=== PATIENT | female | born 1975 | race Caucasian/White ===

== ENCOUNTER 2016-12-30 18:08 | Inpatient (IN) | payer BC, SELFPAY ==
[2016-12-30] MEDS ORDERED: Lactated Ringers 1,000 ML ONE (18:17)
[2016-12-30] MEDS ORDERED: Nalbuphine 20 MG/1 ML Amp IVPUSH PRN (18:25)
[2016-12-30] MEDS ORDERED: Ondansetron 4 MG/2 ML SDV IVPUSH PRN (18:25)
[2016-12-30] MEDS ORDERED: Sodium Chloride 0.9% 10 ML Syringe FLUSH PRN (18:25)
[2016-12-30] MEDS ORDERED: Oxytocin/Lactated Ringers 10 UNIT/1,000 ML BAG IV SCH (18:30)
[2016-12-30] MEDS ORDERED: Lactated Ringers 1,000 ML IV SCH (18:30)
[2016-12-30] MEDS ORDERED: fentaNYL 100 MCG/2 ML SDV ONE (18:46)
[2016-12-30] MEDS ORDERED: Lidocaine 1% 50 ML MDV ONE (18:47)
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
--- NOTE | 2016-12-30 19:10 | PCM.PREANE ---
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: no symptoms Respiratory: Reports: no symptoms Cardiovascular: Reports: no symptoms GI: Reports: no symptoms Other: Reports: none - PHYSICAL ASSESSMENT HR: 89 O2 Sat by Pulse Oximetry: 98 RR: 20 BP: 136/68 Height: 1.68 m Weight: 90.718 kg ASA Class: 2 Mental Status: alert & oriented x3 Airway Class: Mallampati = 1 Dentition: Reports: normal dentition Thyro-Mental Finger Breadths: 3 Mouth Opening Finger Breadths: 3 ROM/Head Extension: full Respiratory Status: lungs clear to auscultation bilaterally Cardiovascular Status: regular rate & rhythm, normal S1, S2, no murmur, blood pressure WNL - LAB Values: Laboratory Last Values WBC 13.33 K/mm3 (3.98-10.04) H 12/30/16 18:32 RBC 4.89 M/mm3 (3.98-5.22) 12/30/16 18:32 Hgb 12.7 gm/L (11.2-15.7) 12/30/16 18:32 Hct 39.5 % (34.1-44.9) 12/30/16 18:32 MCV 80.8 fl (79.4-94.8) 12/30/16 18:32 MCH 26.0 pg (25.6-32.2) 12/30/16 18:32 MCHC 32.2 g/dl (32.2-35.5) 12/30/16 18:32 RDW Std Deviation 43.4 fL (36.4-46.3) 12/30/16 18:32 Plt Count 337 K/mm3 (182-369) 12/30/16 18:32 MPV 9.4 fl (9.4-12.3) 12/30/16 18:32 Neut % (Auto) 68.1 % (34.0-71.1) 12/30/16 18:32 Lymph % (Auto) 23.6 % (19.3-51.7) 12/30/16 18:32 [place] % (Auto) 7.0 % (4.7-12.5) 12/30/16 18:32 Eos % (Auto) 0.6 (0.7-5.8) L 12/30/16 18:32 Baso % (Auto) 0.2 % (0.1-1.2) 12/30/16 18:32 Neut # 9.08 K/mm3 (1.56-6.13) H 12/30/16 18:32 Lymph # 3.15 K/mm3 (1.18-3.74) 12/30/16 18:32 [place] # 0.93 K/mm3 (0.24-0.36) H 12/30/16 18:32 Eos # 0.08 K/mm3 (0.04-0.36) 12/30/16 18:32 Baso # 0.02 K/mm3 (0.01-0.08) 12/30/16 18:32 - ALLERGIES Allergies/Adverse Reactions: Allergies Allergy/AdvReac Type Severity Reaction Status Date / Time Penicillins Allergy Anaphylactic Verified 12/30/16 18:42 Shock - ANESTHESIA PLAN Preop Beta Wily: No Anesthesia Type Planned: spinal - ACKNOWLEDGEMENTS Pt an appropriate candidate for the planned anesthesia: Yes Alternatives and risks of anesthesia discussed w pt/guardian: Yes Pt/Guardian understands and agree with anesthesia plan: Yes 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 [No Known Home Meds] 01/30/16 [History] - CURRENT (IN HOUSE) MEDS Current Meds: Current Medications Lactated Ringer's (Ringers, Lactated) 1,000 mls @ 100 mls/hr IV ASDIRECTED ABHISHEK Oxytocin/Lactated Ringer's (Pitocin In Lr 10 Units/1,000 Ml) 10 unit in 1,000 mls @ 500 mls/hr IV TITRATE ABHISHEK Nalbuphine HCl (Nubain) 10 mg IVPUSH Q2H PRN PRN Reason: Pain (moderate 4-6) Last Admin: 12/30/16 18:35 Dose: 5 mg Ondansetron HCl (Zofran) 4 mg IVPUSH Q4H PRN PRN Reason: Nausea/Vomiting Sodium Chloride (Saline Flush) 10 ml FLUSH ASDIRECTED PRN PRN Reason: Keep Vein Open Discontinued Medications Fentanyl (Sublimaze) Confirm Administered Dose 100 mcg .ROUTE .STK-MED ONE Stop: 12/30/16 18:47 Lactated Ringer's (Ringers, Lactated) Confirm Administered Dose 1,000 mls @ as directed .ROUTE .STK-MED ONE Stop: 12/30/16 18:18 Lidocaine HCl (Xylocaine 1%) Confirm Administered Dose 50 ml .ROUTE .STK-MED ONE Stop: 12/30/16 18:48
--- NOTE | 2016-12-30 20:50 | PCM.SN ---
- Free Text/Narrative Note: Renee was admitted in active labor on 12/30/16 with cervical dilation to 7-8 cm. She had somewhat of a precipitous labor, did have a quick spinal block and rapidly became completely dilated. The baby was noted to be in direct occiput posterior position. The patient pushed for approximately one hour. She delivered the baby in a occiput posterior position with the baby's head rotating at the last minute to a left occiput anterior position. She delivered over an intact perineum and had some abrasions. No bleeding or are anatomic distortion noted. She delivered a viable, sotelo, female infant with Apgars of 9 and 9 and a weight of 3484 grams (7 # 12 ounces) at 2019 hours and wasm 53 cm long. The placenta delivered in a Phoebe presentation at 2023 hours. It appeared intact and complete and delivered without problems. The umbilical cord had 3 vessels. Pitocin was administered after delivery of the baby. Estimated blood loss 200 cc. Condition good. Patient plans to nurse.
[2016-12-30] MEDS ORDERED: Docusate Sodium 100 MG Cap PO PRN (21:05)
[2016-12-30] MEDS ORDERED: Lanolin 100% Cream 7 GM Tube TOP PRN (21:05)
[2016-12-30] MEDS ORDERED: Witch Hazel Medicated Pads 100/Jar TOP PRN (21:05)
[2016-12-30] MEDS ORDERED: Acetaminophen 325 MG Tab PO PRN (21:05)
[2016-12-30] MEDS ORDERED: Benzocaine/Menthol 20%-0.5% Spray 56 GM Canister TOP PRN (21:05)
[2016-12-30] MEDS: Ibuprofen 600 MG Tab PO PRN (22:02)
[2016-12-31] MEDS: Ibuprofen 600 MG Tab PO PRN ×2 (04:23→13:41)
--- NOTE | 2016-12-31 08:04 | PCM48HPAN ---
Post Anesthesia Note - EVALUATION WITHIN 48HRS OF ANESTHETIC Vital Signs in Normal Range: Yes Patient Participated in Evaluation: Yes Respiratory Function Stable: Yes Airway Patent: Yes Cardiovascular Function Stable: Yes Hydration Status Stable: Yes Pain Control Satisfactory: Yes Nausea and Vomiting Control Satisfactory: Yes Mental Status Recovered: Yes
--- NOTE | 2016-12-31 09:48 | PCM.DCSUM1 ---
Discharge Summary - Hospital Course Free Text/Narrative:: Renee was admitted in active labor on 12/30/16 with cervical dilation to 7-8 cm. She had somewhat of a precipitous labor, did have a quick spinal block and rapidly became completely dilated. The baby was noted to be in direct occiput posterior position. The patient pushed for approximately one hour. She delivered the baby in a occiput posterior position with the baby's head rotating at the last minute to a left occiput anterior position. She delivered over an intact perineum and had some abrasions. No bleeding or are anatomic distortion noted. She delivered a viable, sotelo, female infant with Apgars of 9 and 9 and a weight of 3484 grams (7 # 12 ounces) at 2019 hours and wasm 53 cm long. The placenta delivered in a Phoebe presentation at 2023 hours. It appeared intact and complete and delivered without problems. The umbilical cord had 3 vessels. Pitocin was administered after delivery of the baby. Estimated blood loss 200 cc. Condition good. Patient plans to nurse. PP day one doing very well. Hb OK, nursing well. Desires discharge home. - Discharge Data Discharge Date: 12/31/16 Discharge Disposition: Home, Self-Care 01 Condition: Good - Patient Instructions Diet: Regular Diet as Tolerated (nursing) Activity: As Tolerated (No intercourse or tampons till bleeding stops.) Driving: May Drive Today Showering/Bathing: May Shower (or bathe) Notify Provider of: Fever, Increased Pain, Swelling and Redness, Nausea and/or Vomiting - Discharge Plan Home Medications: Home Meds Ibuprofen [IJD: Ibuprofen] 600 mg PO Q4H PRN #30 tablet 12/31/16 [Rx] Referrals: Felipe Del Cid MD [Primary Care Provider] - (RTC TFA-6 weeks.) - Discharge Summary/Plan Comment DC Time >30 min.: No Discharge Summary/Plan Comment: Instructions: 1. Nursing diet 2. Precautions regarding pain, temp, bleeding, DVT/PE given. 3. Meds per home med sheet. 4. RTC [address] Del Cid Dx: 39 week IUP-delivered cond: good - Patient Data Vitals - Most Recent: Last Vital Signs Temp 36.9 C 12/31/16 04:12 Pulse 92 12/31/16 04:12 Resp 18 12/31/16 04:00 BP 132/77 12/31/16 04:12 Pulse Ox 97 12/31/16 04:12 Weight - Most Recent: 105.687 kg I&O - Last 24 hours: Intake & Output 12/30/16 12/31/16 12/31/16 22:59 06:59 14:59 Intake Total 1700 Balance 1700 Lab Results - Last 24 hrs: Laboratory Results - last 24 hr 12/30/16 12/31/16 Range/Units 18:32 06:14 WBC 13.33 H 15.52 H (3.98-10.04) K/mm3 RBC 4.89 4.46 (3.98-5.22) M/mm3 Hgb 12.7 11.6 (11.2-15.7) gm/L Hct 39.5 36.9 (34.1-44.9) % MCV 80.8 82.7 (79.4-94.8) fl MCH 26.0 26.0 (25.6-32.2) pg MCHC 32.2 31.4 L (32.2-35.5) g/dl RDW Std Deviation 43.4 44.2 (36.4-46.3) fL Plt Count 337 307 (182-369) K/mm3 MPV 9.4 9.7 (9.4-12.3) fl Neut % (Auto) 68.1 (34.0-71.1) % Lymph % (Auto) 23.6 (19.3-51.7) % [place] % (Auto) 7.0 (4.7-12.5) % Eos % (Auto) 0.6 L (0.7-5.8) Baso % (Auto) 0.2 (0.1-1.2) % Neut # 9.08 H (1.56-6.13) K/mm3 Lymph # 3.15 (1.18-3.74) K/mm3 [place] # 0.93 H (0.24-0.36) K/mm3 Eos # 0.08 (0.04-0.36) K/mm3 Baso # 0.02 (0.01-0.08) K/mm3 Med Orders - Current: Current Medications Acetaminophen (Tylenol) 650 mg PO Q4H PRN PRN Reason: mild pain or fever Benzocaine/Menthol (Dermoplast Pain Relief Valentines) 0 gm TOP ASDIRECTED PRN PRN Reason: Perineal Comfort Measure Last Admin: 12/30/16 22:04 Dose: 1 canister Docusate Sodium (Colace) 100 mg PO BID PRN PRN Reason: Constipation Last Admin: 12/31/16 04:23 Dose: 100 mg Emollient Ointment (Lansinoh Hpa) 0 gm TOP ASDIRECTED PRN PRN Reason: Sore Nipples Ibuprofen (Motrin) 600 mg PO Q4H PRN PRN Reason: Mild pain or fever Last Admin: 12/31/16 04:23 Dose: 600 mg Witch Syabel (Tucks) 1 pad TOP ASDIRECTED PRN PRN Reason: Hemorrhoid pain Last Admin: 12/30/16 22:04 Dose: 1 container Discontinued Medications Fentanyl (Sublimaze) Confirm Administered Dose 100 mcg .ROUTE .STK-MED ONE Stop: 12/30/16 18:47 Last Admin: 12/30/16 19:18 Dose: Not Given Lactated Ringer's (Ringers, Lactated) Confirm Administered Dose 1,000 mls @ as directed .ROUTE .STK-MED ONE Stop: 12/30/16 18:18 Last Admin: 12/30/16 19:18 Dose: Not Given Lactated Ringer's (Ringers, Lactated) 1,000 mls @ 100 mls/hr IV ASDIRECTED [facility] Last Admin: 12/30/16 18:30 Dose: 999 mls/hr Oxytocin/Lactated Ringer's (Pitocin In Lr 10 Units/1,000 Ml) 10 unit in 1,000 mls @ 500 mls/hr IV TITRATE [facility] Last Infusion: 12/30/16 21:30 Dose: 250 mls/hr Lidocaine HCl (Xylocaine 1%) Confirm Administered Dose 50 ml .ROUTE .STK-MED ONE Stop: 12/30/16 18:48 Last Admin: 12/30/16 19:18 Dose: Not Given Nalbuphine HCl (Nubain) 10 mg IVPUSH Q2H PRN PRN Reason: Pain (moderate 4-6) Last Admin: 12/30/16 18:35 Dose: 5 mg Ondansetron HCl (Zofran) 4 mg IVPUSH Q4H PRN PRN Reason: Nausea/Vomiting Sodium Chloride (Saline Flush) 10 ml FLUSH ASDIRECTED PRN PRN Reason: Keep Vein Open *Q Meaningful Use (DIS) - VTE *Q VTE Criteria *Q: - Stroke *Q Stroke Criteria *Q: - AMI *Q AMI Criteria *Q:
[2016-12-31 13:29] VITALS: BP 137/82
== END 2016-12-31 21:00 | disposition home or self-care (01) | DRG 560 ==
LOC: JD.OBCHECK 18:08 → JD.OB 18:11 → JD.OBCHECK 18:42 → JD.OB 20:19
PROVIDERS: ADMIT Obstetrics & Gynecology; ATTEND Obstetrics & Gynecology
PROC: 10E0XZZ Delivery of Products of Conception, External Approach (ICD-10-PCS; principal; 2016-12-30)
PROC: 00HU33Z Insertion of Infusion Device into Spinal Canal, Percutaneous Approach (ICD-10-PCS; 2016-12-30)
PROC: 3E0R3CZ (ICD-10-PCS; 2016-12-30)
DX: O62.3 Precipitate labor (principal); Z3A.40 40 weeks gestation of pregnancy; Z37.0 Single live birth; Z88.0 Allergy status to penicillin
CPT/HCPCS: 36415; 85025; 85027; A9270-GY; J2300; J2590; J7120

== ENCOUNTER 2017-07-14 09:42 | Emergency (ER) | payer BC, OTHER, SELFPAY ==
[2017-07-14 09:59] VITALS: BP 157/99
--- NOTE | 2017-07-14 11:07 | EDM.PDOC ---
ED HPI GENERAL MEDICAL PROBLEM - General Chief Complaint: Chest Pain Stated Complaint: DIZZY/CHEST AND NECK PAIN Time Seen by Provider: 07/14/17 10:01 Source of Information: Reports: Patient, RN Notes Reviewed - History of Present Illness INITIAL COMMENTS - FREE TEXT/NARRATIVE: 42-year-old female comes in with intermittent chest discomfort and then episode of palpitations, lightheadedness this morning about one hour ago. She did have some mild radiation of discomfort toward her left neck. She states "my has made me come in and get this checked out". She does not have history of known coronary artery disease. No history of known hypertension diabetes or other known medical problems. She does not smoke. She does not take any medications on a regular basis. The discomfort was just a mild ache and almost stabbing type discomfort that does come and go. Not present at the current time. 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 Psychiatric History: Reports: Depression Other Psychiatric History: post with prior delivery Endocrine/Metabolic History: Reports: Diabetes, Gestational Other Endocrine/Metabolic History: diet controlled - Past Surgical History Musculoskeletal Surgical History: Reports: Other (See Below) Social & Family History - Family History Family Medical History: Noncontributory - Tobacco Use Smoking Status *Q: Never Smoker Second Hand Smoke Exposure: No - Caffeine Use Caffeine Use: Reports: Coffee - Recreational Drug Use Recreational Drug Use: No ED ROS GENERAL - Review of Systems Review Of Systems: See Below Constitutional: Denies: Fever, Chills, Diaphoresis HEENT: Denies: Throat Pain Respiratory: Denies: Shortness of Breath, Pleuritic Chest Pain, Cough Cardiovascular: Reports: Chest Pain (Gone), Lightheadedness, Palpitations (Gone gone) GI/Abdominal: Denies: Abdominal Pain, Nausea, Vomiting Musculoskeletal: Denies: Shoulder Pain, Arm Pain, Leg Pain Skin: Reports: No Symptoms Neurological: Reports: No Symptoms ED EXAM, GENERAL - Physical Exam Exam: See Below General Appearance: Alert, No Apparent Distress Eye Exam: Bilateral Eye: PERRL Throat/Mouth: Normal Inspection Head: Atraumatic Neck: Supple, Full Range of Motion Respiratory/Chest: No Respiratory Distress, Lungs Clear, Normal Breath Sounds, Chest Non-Tender Cardiovascular: Regular Rate, Rhythm GI/Abdominal: Soft, Non-Tender. No: Guarding Extremities: Normal Inspection, Normal Range of Motion Neurological: Alert, Oriented, No Motor/Sensory Deficits Skin Exam: Warm, Dry, Normal Color EKG INTERPRETATION EKG Date: 07/14/17 Rhythm: NSR Early: Normal QRS: Other (There are small Q waves inferiorly, very slight ST depression V5 and V6.) Course - Vital Signs Last Recorded V/S: Last Vital Signs Temp 98.4 F 07/14/17 09:53 Pulse 105 H 07/14/17 09:53 Resp 12 07/14/17 09:53 BP 157/99 H 07/14/17 09:53 Pulse Ox 96 07/14/17 09:53 - Orders/Labs/Meds Orders: Active Orders 24 hr Category Date Time Status EKG 12 Lead [EKG Documentation Completion] [RC] URGENT Care 07/14/17 10:02 Active Labs: Laboratory Tests 07/14/17 07/14/17 Range/Units 09:55 09:55 WBC 7.16 (3.98-10.04) K/mm3 RBC 5.26 H (3.98-5.22) M/mm3 Hgb 14.8 (11.2-15.7) gm/L Hct 45.8 H (34.1-44.9) % MCV 87.1 (79.4-94.8) fl MCH 28.1 (25.6-32.2) pg MCHC 32.3 (32.2-35.5) g/dl RDW Std Deviation 41.8 (36.4-46.3) fL Plt Count 308 (182-369) K/mm3 MPV 9.5 (9.4-12.3) fl Neut % (Auto) 47.9 (34.0-71.1) % Lymph % (Auto) 40.6 (19.3-51.7) % [place] % (Auto) 6.3 (4.7-12.5) % Eos % (Auto) 4.3 (0.7-5.8) Baso % (Auto) 0.6 (0.1-1.2) % Neut # (Auto) 3.43 (1.56-6.13) K/mm3 Lymph # (Auto) 2.91 (1.18-3.74) K/mm3 [place] # (Auto) 0.45 H (0.24-0.36) K/mm3 Eos # (Auto) 0.31 (0.04-0.36) K/mm3 Baso # (Auto) 0.04 (0.01-0.08) K/mm3 Sodium 139 (136-145) mEq/L Potassium 4.1 (3.5-5.1) mEq/L Chloride 104 (98-107) mEq/L Carbon Dioxide 27 (21-32) mEq/L Anion Gap 12.1 (5-15) BUN 16 (7-18) mg/dL Creatinine 0.8 (0.55-1.02) mg/dL Est Cr Clr Drug Dosing 87.51 mL/min Estimated GFR (MDRD) > 60 (>60) mL/min BUN/Creatinine Ratio 20.0 H (14-18) Glucose 103 (74-106) mg/dL Calcium 9.1 (8.5-10.1) mg/dL Total Bilirubin 0.2 (0.2-1.0) mg/dL AST 26 (15-37) U/L ALT 41 (14-59) U/L Alkaline Phosphatase 115 (46-116) U/L Troponin I < 0.017 (0.00-0.056) ng/mL Total Protein 8.0 (6.4-8.2) g/dl Albumin 4.0 (3.4-5.0) g/dl Globulin 4.0 gm/dL Albumin/Globulin Ratio 1.0 (1-2) TSH 3rd Generation 1.640 (0.358-3.74) uIU/mL - Re-Assessments/Exams Free Text/Narrative Re-Assessment/Exam: 07/14/17 11:33 Troponin has come back normal other labs are good as well patient is been resting comfortably, sinus rhythm running primarily in the upper 80s to low 90s. Discharge instructions as documented Departure - Departure Time of Disposition: 11:31 Disposition: Home, Self-Care 01 Condition: Fair Clinical Impression: Atypical chest pain, Dizziness, nonspecific Referrals: PCP,None [Primary Care Provider] - Forms: ED Department Discharge Additional Instructions: Rest, drink plenty of water to maintain hydration, consider buying a blood pressure unit to be able to check your blood pressure and heart rate if you do have further episodes of dizziness, lightheadedness or palpitations. If heart rate is running greater than 120 for more than just a few minutes it would be advisable to return to ED, follow-up clinic as needed, return to ED as needed if symptoms worsening in any way. - My Orders Last 24 Hours: My Active Orders 07/14/17 10:02 EKG 12 Lead [EKG Documentation Completion] [RC] URGENT - Assessment/Plan Last 24 Hours: My Active Orders 07/14/17 10:02 EKG 12 Lead [EKG Documentation Completion] [RC] URGENT
== END 2017-07-14 11:40 | disposition home or self-care (01) ==
LOC: JD.ED 09:42
DX: R07.89 Other chest pain (principal); R42 Dizziness and giddiness; F32.9 Major depressive disorder, single episode, unspecified; Z88.0 Allergy status to penicillin
CPT/HCPCS: 36415; 80053; 84443; 84484; 85025; 93005; 99284; 99285

== ENCOUNTER 2018-10-27 19:23 | Emergency (ER) | payer BC ==
[2018-10-27 19:35] VITALS: BP 130/114
[2018-10-27] MEDS ORDERED: Sodium Chloride 0.9% 10 ML Syringe FLUSH PRN (19:37)
--- NOTE | 2018-10-27 20:47 | EDM.PDOC ---
ED HPI GENERAL MEDICAL PROBLEM - General Chief Complaint: Chest Pain Stated Complaint: chest pain Time Seen by Provider: 10/27/18 19:25 Source of Information: Reports: Patient History Limitations: Reports: No Limitations - History of Present Illness INITIAL COMMENTS - FREE TEXT/NARRATIVE: 43-year-old female presents for evaluation and treatment of chest pain. Patient reports reporting chest pain along the left side or her chest underneath her left breast. She is also reporting pain that goes through her into her back. Pain started suddenly this evening after eating a [employer] ice cream cone. She reports associated symptoms of nausea but no vomiting. Tried Tums prior to arrival in the ER. Pain started about 1.5 hours ago and is steadily improving. No previous abdominal surgeries. Patient still has a gallbladder. 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 Psychiatric History: Reports: Depression Other Psychiatric History: post with prior delivery Endocrine/Metabolic History: Reports: Diabetes, Gestational Other Endocrine/Metabolic History: diet controlled - Past Surgical History Musculoskeletal Surgical History: Reports: Other (See Below) Social & Family History - Family History Family Medical History: Noncontributory - Tobacco Use Smoking Status *Q: Never Smoker - Caffeine Use Caffeine Use: Reports: Coffee - Recreational Drug Use Recreational Drug Use: No ED ROS GENERAL - Review of Systems Review Of Systems: See Below Respiratory: Reports: Pleuritic Chest Pain. Denies: Shortness of Breath Cardiovascular: Reports: Chest Pain (left sided ) GI/Abdominal: Reports: Nausea. Denies: Abdominal Pain, Diarrhea, Vomiting ED EXAM, GENERAL - Physical Exam Exam: See Below Exam Limited By: No Limitations General Appearance: Alert, WD/WN, No Apparent Distress, Obese Respiratory/Chest: No Respiratory Distress, Lungs Clear, Normal Breath Sounds Cardiovascular: Normal Peripheral Pulses, Regular Rate, Rhythm, No Murmur GI/Abdominal: Normal Bowel Sounds, Soft, Non-Tender, Other (negativ murphys sign ) Neurological: Alert, Oriented, Normal Cognition Psychiatric: Normal Affect, Normal Mood Skin Exam: Warm, Dry, Normal Color EKG INTERPRETATION EKG Date: 10/27/18 Time: 19:40 Rhythm: NSR Rate (Beats/Min): 98 [place]: LAD-Left [place] Deviation P-Wave: Present QRS: Normal ST-T: Normal QT: Normal EKG Interpretation Comments: NSR at 98 bpm. Initial poor "R" wave progression, consider left atrial hypertrophy. Q waves III and near Q wave AVF. LAD (-15 degrees). Reviewed by myself and Dr. Estrada. Course - Vital Signs Last Recorded V/S: Last Vital Signs Temp 98.1 F 10/27/18 19:25 Pulse 105 H 10/27/18 19:25 Resp 18 10/27/18 19:25 BP 130/114 H 10/27/18 19:25 Pulse Ox 100 10/27/18 19:25 - Orders/Labs/Meds Labs: Laboratory Tests 10/27/18 10/27/18 10/27/18 Range/Units 19:38 19:38 19:38 WBC 10.46 H (3.98-10.04) K/mm3 RBC 5.32 H (3.98-5.22) M/mm3 Hgb 14.8 (11.2-15.7) gm/L Hct 46.0 H (34.1-44.9) % MCV 86.5 (79.4-94.8) fl MCH 27.8 (25.6-32.2) pg MCHC 32.2 (32.2-35.5) g/dl RDW Std Deviation 42.4 (36.4-46.3) fL Plt Count 342 (182-369) K/mm3 MPV 9.4 (9.4-12.3) fl Neut % (Auto) 54.8 (34.0-71.1) % Lymph % (Auto) 36.6 (19.3-51.7) % [place] % (Auto) 6.6 (4.7-12.5) % Eos % (Auto) 1.2 (0.7-5.8) Baso % (Auto) 0.4 (0.1-1.2) % Neut # (Auto) 5.73 (1.56-6.13) K/mm3 Lymph # (Auto) 3.83 H (1.18-3.74) K/mm3 [place] # (Auto) 0.69 H (0.24-0.36) K/mm3 Eos # (Auto) 0.13 (0.04-0.36) K/mm3 Baso # (Auto) 0.04 (0.01-0.08) K/mm3 D-Dimer, Quantitative 0.20 (0.19-0.50) mg/L Sodium 139 (136-145) mEq/L Potassium 3.8 (3.5-5.1) mEq/L Chloride 101 (98-107) mEq/L Carbon Dioxide 30 (21-32) mEq/L Anion Gap 11.8 (5-15) BUN 12 (7-18) mg/dL Creatinine 0.8 (0.55-1.02) mg/dL Est Cr Clr Drug Dosing 83.27 mL/min Estimated GFR (MDRD) > 60 (>60) mL/min BUN/Creatinine Ratio 15.0 (14-18) Glucose 115 H (74-106) mg/dL Calcium 9.2 (8.5-10.1) mg/dL Total Bilirubin 0.2 (0.2-1.0) mg/dL AST 21 (15-37) U/L ALT 34 (14-59) U/L Alkaline Phosphatase 89 (46-116) U/L Troponin I < 0.017 (0.00-0.056) ng/mL C-Reactive Protein 0.4 (<1.0) mg/dL Total Protein 7.9 (6.4-8.2) g/dl Albumin 4.0 (3.4-5.0) g/dl Globulin 3.9 gm/dL Albumin/Globulin Ratio 1.0 (1-2) Lipase 111 (73-393) U/L 10/27/18 Range/Units 21:30 WBC (3.98-10.04) K/mm3 RBC (3.98-5.22) M/mm3 Hgb (11.2-15.7) gm/L Hct (34.1-44.9) % MCV (79.4-94.8) fl MCH (25.6-32.2) pg MCHC (32.2-35.5) g/dl RDW Std Deviation (36.4-46.3) fL Plt Count (182-369) K/mm3 MPV (9.4-12.3) fl Neut % (Auto) (34.0-71.1) % Lymph % (Auto) (19.3-51.7) % [place] % (Auto) (4.7-12.5) % Eos % (Auto) (0.7-5.8) Baso % (Auto) (0.1-1.2) % Neut # (Auto) (1.56-6.13) K/mm3 Lymph # (Auto) (1.18-3.74) K/mm3 [place] # (Auto) (0.24-0.36) K/mm3 Eos # (Auto) (0.04-0.36) K/mm3 Baso # (Auto) (0.01-0.08) K/mm3 D-Dimer, Quantitative (0.19-0.50) mg/L Sodium (136-145) mEq/L Potassium (3.5-5.1) mEq/L Chloride (98-107) mEq/L Carbon Dioxide (21-32) mEq/L Anion Gap (5-15) BUN (7-18) mg/dL Creatinine (0.55-1.02) mg/dL Est Cr Clr Drug Dosing mL/min Estimated GFR (MDRD) (>60) mL/min BUN/Creatinine Ratio (14-18) Glucose (74-106) mg/dL Calcium (8.5-10.1) mg/dL Total Bilirubin (0.2-1.0) mg/dL AST (15-37) U/L ALT (14-59) U/L Alkaline Phosphatase (46-116) U/L Troponin I < 0.017 (0.00-0.056) ng/mL C-Reactive Protein (<1.0) mg/dL Total Protein (6.4-8.2) g/dl Albumin (3.4-5.0) g/dl Globulin gm/dL Albumin/Globulin Ratio (1-2) Lipase (73-393) U/L Meds: Medications Discontinued Medications Generic Name Dose Route Start Last Admin Trade Name Freq PRN Reason Stop Dose Admin Sodium Chloride 10 ml 10/27/18 19:37 10/27/18 20:26 Saline Flush FLUSH 10 ml ASDIRECTED PRN Administration Keep Vein Open - Radiology Interpretation Free Text/Narrative:: 2 view chest xray shows no acute intrathoracic process. Reviewed by myself and Dr. Estrada. - Re-Assessments/Exams Free Text/Narrative Re-Assessment/Exam: 10/27/18 22:13 I reviewed the labs, ekg and test results with the patient. Trop and repeat trop are negative. She has declined pain medication since coming to the ER. Suspect this may be her gallbladder causing discomfort as she did develop symptoms after eating fatty foods tonight. Given her pain is now resolved and she is not fasting discussed follow-up with family med, may require an ultrasound in the near future. Will discharge patient home tonight. Discharge instructions as documented. Departure - Departure Time of Disposition: 22:17 Disposition: Home, Self-Care 01 Reason for Transfer *Q: Other Condition: Good Clinical Impression: Atypical chest pain Instructions: Nonspecific Chest Pain, [id number] Referrals: PCP,None [Primary Care Provider] - Ann-Marie Lima PA [Physician Face Cleaner] - Forms: ED Department Discharge Additional Instructions: Recommend tylenol or motrin as needed for discomfort. If symptoms continue you may need to have further work up such as an ultrasound of your gallbladder. Recommend follow-up with family medicine. At the [facility] ([place] recommend Dafne Shannon or Ann-Marie Lima, call [phone] to schedule with one of these providers. Please return to the ER should your symptoms change or worsen.
--- NOTE | 2018-10-28 06:58 | CR ---
Chest: Two views of the chest were obtained. Comparison: No prior chest x-ray. Heart size and mediastinum are within normal limits. Lungs are clear. Minimal scoliosis is noted. Impression: 1. Nothing acute is seen on two-view chest x-ray. Diagnostic code #2
== END 2018-10-27 22:28 | disposition home or self-care (01) ==
LOC: JD.ED 19:23
DX: R07.89 Other chest pain (principal); Z88.0 Allergy status to penicillin
CPT/HCPCS: 36415; 71046; 71046-26; 80053; 83690; 84484; 85025; 85379; 86140; 93005; 99285-25

== ENCOUNTER 2019-03-27 08:27 | Emergency (ER) | payer BC ==
[2019-03-27 08:49] VITALS: BP 134/81
[2019-03-27] MEDS ORDERED: Ondansetron 4 MG/2 ML SDV IVPUSH ONE (09:11)
[2019-03-27] MEDS ORDERED: Sodium Chloride 0.9% 1,000 ML IV STA (09:11)
[2019-03-27] MEDS ORDERED: Sodium Chloride 0.9% 10 ML Syringe FLUSH PRN (09:11)
[2019-03-27] MEDS ORDERED: HYDROmorphone 0.5 MG/0.5 ML Syringe IVPUSH ONE (09:14)
--- NOTE | 2019-03-27 09:19 | EDM.PDOC ---
ED HPI GENERAL MEDICAL PROBLEM - General Chief Complaint: Abdominal Pain Stated Complaint: DIVERTICULITIS NOT BETTER Time Seen by Provider: 03/27/19 08:46 Source of Information: Reports: Patient History Limitations: Reports: No Limitations - History of Present Illness INITIAL COMMENTS - FREE TEXT/NARRATIVE: The patient presents with left lower and right upper abdominal pain. This all started a couple weeks ago. She was evaluated at the walk in clinic at [place] and a CT was done and it showed diverticulitis. She was started on antibiotics. She felt good for awhile an she has been off of antibiotics 4 days now. She has pain in the left abdomen and right upper abdomen. She also has diarrhea. She is nauseated and cannot eat. She has no fever or chills. She has no chest pain or shortness of breath. She has no dysuria. She does not think she is . Her had a vasectomy. She had trouble with her gallbladder in the past. An US did not show stones and she is going to follow up in [place] to a surgeon to have a HIDA scan done. She cannot eat or drink much. Onset: Gradual Duration: Week(s): (2) Location: Reports: Abdomen Quality: Reports: Sharp Severity: Moderate Improves with: Reports: None Worsens with: Reports: None Associated Symptoms: Reports: Nausea/Vomiting. 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: currently Psychiatric History: Reports: Depression Other Psychiatric History: post with prior delivery Endocrine/Metabolic History: Reports: Diabetes, Gestational Other Endocrine/Metabolic History: diet controlled - Past Surgical History Musculoskeletal Surgical History: Reports: Other (See Below) Social & Family History - Family History Family Medical History: Noncontributory - Tobacco Use Smoking Status *Q: Never Smoker - Caffeine Use Caffeine Use: Reports: Coffee - Recreational Drug Use Recreational Drug Use: No ED ROS GENERAL - Review of Systems Review Of Systems: See Below Constitutional: Reports: No Symptoms HEENT: Reports: No Symptoms Respiratory: Reports: No Symptoms Cardiovascular: Reports: No Symptoms Endocrine: Reports: No Symptoms GI/Abdominal: Reports: Abdominal Pain, Diarrhea, Nausea. Denies: Vomiting : Reports: No Symptoms Musculoskeletal: Reports: No Symptoms ED EXAM, GI/ABD - Physical Exam Exam: See Below Exam Limited By: No Limitations General Appearance: Alert, No Apparent Distress Ears: Normal External Exam Nose: Normal Inspection Head: Atraumatic, Normocephalic Neck: Normal Inspection Respiratory/Chest: No Respiratory Distress, Lungs Clear, Normal Breath Sounds Cardiovascular: Regular Rate, Rhythm, No Edema, No Murmur GI/Abdominal Exam: Soft, No Organomegaly, No Mass, Tender (Moderate tenderness to the left upper and lower abdomen) Course - Vital Signs Last Recorded V/S: Last Vital Signs Temp 99.0 F 03/27/19 08:45 Pulse 115 H 03/27/19 08:45 Resp 16 03/27/19 08:45 BP 134/81 03/27/19 08:45 Pulse Ox 96 03/27/19 08:45 - Orders/Labs/Meds Orders: Active Orders 24 hr Category Date Time Status Peripheral IV Care [RC] . DIRECTED Care 03/27/19 09:13 Active Abdomen Pelvis w Cont [CT] Stat Exams 03/27/19 09:11 Taken CULTURE STOOL + SHIGATOX [RM] Stat Lab 03/27/19 11:30 Received Sodium Chloride 0.9% [Saline Flush] Med 03/27/19 09:11 Active 10 ml FLUSH ASDIRECTED PRN ED Antiemetic Medication Reflex [OM.PC] Stat Oth 03/27/19 09:12 Ordered Isolation [COMM] Stat Oth 03/27/19 11:35 Ordered Peripheral IV Insertion Adult [OM.PC] Stat Oth 03/27/19 09:11 Ordered Medication Orders Sodium Chloride (Saline Flush) 10 ml FLUSH ASDIRECTED PRN PRN Reason: Keep Vein Open Last Admin: 03/27/19 09:35 Dose: 10 ml Labs: Laboratory Tests 03/27/19 03/27/19 03/27/19 Range/Units 09:05 09:05 09:05 WBC 8.74 (3.98-10.04) K/mm3 RBC 5.46 H (3.98-5.22) M/mm3 Hgb 14.9 (11.2-15.7) gm/L Hct 46.6 H (34.1-44.9) % MCV 85.3 (79.4-94.8) fl MCH 27.3 (25.6-32.2) pg MCHC 32.0 L (32.2-35.5) g/dl RDW Std Deviation 43.0 (36.4-46.3) fL Plt Count 293 (182-369) K/mm3 MPV 9.6 (9.4-12.3) fl Neut % (Auto) 81.4 H (34.0-71.1) % Lymph % (Auto) 11.0 L (19.3-51.7) % Allen % (Auto) 6.6 (4.7-12.5) % Eos % (Auto) 0.6 L (0.7-5.8) Baso % (Auto) 0.2 (0.1-1.2) % Neut # (Auto) 7.11 H (1.56-6.13) K/mm3 Lymph # (Auto) 0.96 L (1.18-3.74) K/mm3 Allen # (Auto) 0.58 H (0.24-0.36) K/mm3 Eos # (Auto) 0.05 (0.04-0.36) K/mm3 Baso # (Auto) 0.02 (0.01-0.08) K/mm3 Sodium 138 (136-145) mEq/L Potassium 3.6 (3.5-5.1) mEq/L Chloride 101 (98-107) mEq/L Carbon Dioxide 24 (21-32) mEq/L Anion Gap 16.6 H (5-15) BUN 8 (7-18) mg/dL Creatinine 0.8 (0.55-1.02) mg/dL Est Cr Clr Drug Dosing 86.63 mL/min Estimated GFR (MDRD) > 60 (>60) mL/min BUN/Creatinine Ratio 10.0 L (14-18) Glucose 109 H (74-106) mg/dL Calcium 8.7 (8.5-10.1) mg/dL Total Bilirubin 0.4 (0.2-1.0) mg/dL AST 23 (15-37) U/L ALT 36 (14-59) U/L Alkaline Phosphatase 83 (46-116) U/L Total Protein 7.5 (6.4-8.2) g/dl Albumin 3.9 (3.4-5.0) g/dl Globulin 3.6 gm/dL Albumin/Globulin Ratio 1.1 (1-2) Lipase 71 L (73-393) U/L HCG, Qual Negative (NEGATIVE) Urine Color (Yellow) Urine Appearance (Clear) Urine pH (5.0-8.0) Ur Specific Martinez (1.005-1.030) Urine Protein (Negative) Urine Glucose (UA) (Negative) Urine Ketones (Negative) Urine Occult Blood (Negative) Urine Nitrite (Negative) Urine Bilirubin (Negative) Urine Urobilinogen (0.2-1.0) Ur Leukocyte Esterase (Negative) Urine RBC (0-5) /hpf Urine WBC (0-5) /hpf Ur Squamous Epith Cells (0-5) /hpf Urine Bacteria (FEW) /hpf Urine Mucus (FEW) /hpf C.difficile [id number]-[id number] C. difficile Tox (PCR) 03/27/19 03/27/19 Range/Units 11:07 11:30 WBC (3.98-10.04) K/mm3 RBC (3.98-5.22) M/mm3 Hgb (11.2-15.7) gm/L Hct (34.1-44.9) % MCV (79.4-94.8) fl MCH (25.6-32.2) pg MCHC (32.2-35.5) g/dl RDW Std Deviation (36.4-46.3) fL Plt Count (182-369) K/mm3 MPV (9.4-12.3) fl Neut % (Auto) (34.0-71.1) % Lymph % (Auto) (19.3-51.7) % Allen % (Auto) (4.7-12.5) % Eos % (Auto) (0.7-5.8) Baso % (Auto) (0.1-1.2) % Neut # (Auto) (1.56-6.13) K/mm3 Lymph # (Auto) (1.18-3.74) K/mm3 Allen # (Auto) (0.24-0.36) K/mm3 Eos # (Auto) (0.04-0.36) K/mm3 Baso # (Auto) (0.01-0.08) K/mm3 Sodium (136-145) mEq/L Potassium (3.5-5.1) mEq/L Chloride (98-107) mEq/L Carbon Dioxide (21-32) mEq/L Anion Gap (5-15) BUN (7-18) mg/dL Creatinine (0.55-1.02) mg/dL Est Cr Clr Drug Dosing mL/min Estimated GFR (MDRD) (>60) mL/min BUN/Creatinine Ratio (14-18) Glucose (74-106) mg/dL Calcium (8.5-10.1) mg/dL Total Bilirubin (0.2-1.0) mg/dL AST (15-37) U/L ALT (14-59) U/L Alkaline Phosphatase (46-116) U/L Total Protein (6.4-8.2) g/dl Albumin (3.4-5.0) g/dl Globulin gm/dL Albumin/Globulin Ratio (1-2) Lipase (73-393) U/L HCG, Qual (NEGATIVE) Urine Color Yellow (Yellow) Urine Appearance Clear (Clear) Urine pH 7.0 (5.0-8.0) Ur Specific Martinez 1.010 (1.005-1.030) Urine Protein Negative (Negative) Urine Glucose (UA) Negative (Negative) Urine Ketones Negative (Negative) Urine Occult Blood Negative (Negative) Urine Nitrite Negative (Negative) Urine Bilirubin Negative (Negative) Urine Urobilinogen 0.2 (0.2-1.0) Ur Leukocyte Esterase 2+ H (Negative) Urine RBC 0-5 (0-5) /hpf Urine WBC 0-5 (0-5) /hpf Ur Squamous Epith Cells 5-10 H (0-5) /hpf Urine Bacteria Few (FEW) /hpf Urine Mucus Not seen (FEW) /hpf C.difficile [id number]-NAP1-B1 Presumptive negative C. difficile Tox (PCR) Positive H Meds: Medications Generic Name Dose Route Start Last Admin Trade Name Freq PRN Reason Stop Dose Admin Sodium Chloride 10 ml 03/27/19 09:11 03/27/19 09:35 Saline Flush FLUSH 10 ml ASDIRECTED PRN Administration Keep Vein Open Discontinued Medications Generic Name Dose Route Start Last Admin Trade Name Freq PRN Reason Stop Dose Admin Diatrizoate Meglum/Diatrizoate Sod 90 ml 03/27/19 10:40 03/27/19 10:54 Gastrografin 37% PO 03/27/19 10:41 90 ml ONETIME ONE Administration Hydromorphone HCl 0.5 mg 03/27/19 09:14 03/27/19 09:33 Dilaudid IVPUSH 03/27/19 09:15 0.5 mg ONETIME ONE Administration Sodium Chloride 1,000 mls @ 1,000 mls/hr 03/27/19 09:11 03/27/19 09:34 Normal Saline IV 03/27/19 10:10 1,000 mls/hr .BOLUS STA Administration Iohexol 100 ml 03/27/19 10:40 03/27/19 10:54 Omnipaque-300 IVPUSH 03/27/19 10:41 100 ml ONETIME ONE Administration Ondansetron HCl 4 mg 03/27/19 09:11 03/27/19 09:30 Zofran IVPUSH 03/27/19 09:12 4 mg ONETIME ONE Administration Sodium Chloride 10 ml 03/27/19 10:40 03/27/19 10:54 Saline Flush FLUSH 03/27/19 10:41 10 ml ONETIME ONE Administration - Re-Assessments/Exams Free Text/Narrative Re-Assessment/Exam: 03/27/19 09:19 I ordered an IV NS 1L bolus, zofran 4mg IV, dilaudid 0.5mg IV, labs, UA and a CT of her abdomen and pelvis. I will get a stool sample if she has to go. 03/27/19 13:26 Her CBC looks good. Her anion gap is elevated at 16.6. Lipase is normal. HCG is normal. UA shows no UTI. Her CT shows colonic diverticulitis. No CT evidence of diverticulitis. Her C-dif is positive. I will get her on vancomycin and something for nausea. Departure - Departure Time of Disposition: 01:30 Disposition: Home, Self-Care 01 Condition: Good Clinical Impression: Clostridium difficile diarrhea - Discharge Information *PRESCRIPTION DRUG MONITORING PROGRAM REVIEWED*: Not Applicable *COPY OF PRESCRIPTION DRUG MONITORING REPORT IN PATIENT ODILIA: Not Applicable Prescriptions: Ondansetron [Zofran ODT] 4 mg PO Q6H PRN #20 tab.dis PRN Reason: Nausea\vomiting Vancomycin [Vancocin 125 MG/2.5 ML Soln] 125 mg PO QID #40 cup Referrals: PCP,None [Primary Care Provider] - Dafne Shannon PA-C [Physician Ampoule Washing Machine Operator] - 1 Week Forms: ED Department Discharge Additional Instructions: Take the vancomycin 1 pill 4 times per day for 10 days. Take the zofran as needed for nausea. Hand cat and dog bather does not work against the C-dif so good hand washing with soap and water will help stop the spread. Drink plenty of fluids. Please return if you are worse. - My Orders Last 24 Hours: My Active Orders 03/27/19 09:11 Abdomen Pelvis w Cont [CT] Stat Sodium Chloride 0.9% [Saline Flush] 10 ml FLUSH ASDIRECTED PRN Peripheral IV Insertion Adult [OM.PC] Stat 03/27/19 09:12 ED Antiemetic Medication Reflex [OM.PC] Stat 03/27/19 09:13 Peripheral IV Care [RC] . DIRECTED 03/27/19 11:30 CULTURE STOOL + SHIGATOX [RM] Stat 03/27/19 11:35 Isolation [COMM] Stat - Assessment/Plan Last 24 Hours: My Active Orders 03/27/19 09:11 Abdomen Pelvis w Cont [CT] Stat Sodium Chloride 0.9% [Saline Flush] 10 ml FLUSH ASDIRECTED PRN Peripheral IV Insertion Adult [OM.PC] Stat 03/27/19 09:12 ED Antiemetic Medication Reflex [OM.PC] Stat 03/27/19 09:13 Peripheral IV Care [RC] . DIRECTED 03/27/19 11:30 CULTURE STOOL + SHIGATOX [RM] Stat 03/27/19 11:35 Isolation [COMM] Stat
[2019-03-27] MEDS ORDERED: Sodium Chloride 0.9% 10 ML Syringe FLUSH ONE (10:40)
[2019-03-27] MEDS ORDERED: Iohexol 647 MG/ML 100 ML Bottle IVPUSH ONE (10:40)
[2019-03-27] MEDS ORDERED: Diatrizoate Meglumine/Diatrizoate Sodium 37% 120 ML Bottle PO ONE (10:40)
--- NOTE | 2019-03-28 10:16 | CT ---
CT abdomen and pelvis Technique: Multiple axial sections were obtained from above the dome of the diaphragm inferiorly through the pubic symphysis. Intravenous and oral contrast was utilized. Delayed images were obtained through the pelvis. Comparison: Prior CT abdomen and pelvis exam of 02/11/16. Findings: Visualized lung bases are clear. Liver contains no focal abnormality. Spleen appears within normal limits. Small amount of gastroesophageal reflux of contrast is seen. Adrenal glands show no nodule. Gallbladder contains no calcified gallstones. Pancreas is within normal limits. Kidneys show symmetric contrast enhancement without hydronephrosis or mass. Aorta shows no aneurysm. No retroperitoneal adenopathy or mesenteric abnormalities are seen. No pelvic mass or adenopathy is seen. Very minimal diverticulosis is seen within the sigmoid colon without findings of diverticulitis. Appendix is seen which is normal in size. Lymph nodes are noted within the right lower abdomen which appear stable from prior CT and therefore are incidental. No free fluid or inflammatory change is seen. Bone window settings were reviewed which show disc space narrowing at L4-L5 and L5-S1 with vacuum phenomena. Impression: 1. Incidental findings as described above. Nothing acute is appreciated on CT study of the abdomen and pelvis. Diagnostic code #2 I agree with preliminary report from [facility], finalized on 03/27/19, 12:25 PM Central Time
== END 2019-03-27 13:45 | disposition home or self-care (01) ==
LOC: JD.ED 08:27
DX: A04.72 Enterocolitis due to Clostridium difficile, not specified as recurrent (principal); Z88.0 Allergy status to penicillin
CPT/HCPCS: 36415; 74177; 80053; 81001; 83690; 84703; 85025; 87046; 87493; 89055; 96361; 96374; 96375; 99284; J1170; J2405; J7040; Q9963; Q9967

== ENCOUNTER 2019-11-03 21:42 | Emergency (ER) | payer BC, SELFPAY ==
[2019-11-03 21:55] VITALS: BP 128/83; PULSE 103
--- NOTE | 2019-11-04 01:12 | EDM.PDOC ---
ED HPI GENERAL MEDICAL PROBLEM - General Chief Complaint: Abdominal Pain Stated Complaint: ABDOMINAL PAIN Time Seen by Provider: 11/04/19 00:40 Source of Information: Reports: Patient, Family (Daughter) History Limitations: Reports: No Limitations - History of Present Illness INITIAL COMMENTS - FREE TEXT/NARRATIVE: Mrs. Yen is a very pleasant 44-year-old woman with a past medical history significant for untreated dyslipidemia, gestational diabetes, lumbar degenerative disc disease status post an L5 laminectomy, and morbid obesity, who developed C. difficile after she was prescribed an antibiotic (whose name she does not recall) by the walk-in clinic for suspected diverticulitis in early March 2019. She states that she had presented to the walk-in clinic at that time with left upper quadrant abdominal pain. She states that an abdominal x-ray was performed, and, she thinks, some blood tests, but no CT scan. She was given a diagnosis of diverticulitis and prescribed the antibiotic. She was then seen in this ED on 03/27/2019 and found to have C. difficile, which was then successfully treated with oral vancomycin. Review of prior medical records finds that the patient underwent a CT scan of her abdomen and pelvis with oral and IV contrast on 02/11/2016, which makes no mention of diverticular disease. A repeat CT scan of her abdomen and pelvis with oral and IV contrast on 03/27/2019 found minimal diverticular disease in the sigmoid colon, with no evidence of diverticulitis. We do not have access to whatever imaging studies the patient may have had at the [facility]. The patient now presents to the ED stating that she developed left upper quadrant abdominal pain this past 11/01/2019. She describes the character of the pain as sharp, and states that it is constant. The pain does not radiate. She has not identified any modifiers. She states that the pain is the same as that which prompted her to present to the walk-in clinic back in March. As a result of her pain, she has been taking only a liquid diet for the past 2 days, which she states has helped the pain, however, she then had some steak tonight, and subsequently developed nausea and watery, non-bloody diarrhea this evening. No recent fever. The patient's PCP is Tatiana Nair NP. She has an appointment to consult with the colorectal surgeon Dr. Kike Pastrana on 11/14/2019. 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: Musculoskeletal History: Reports: Back Pain, Chronic (Lumbar DDD, s/p laminectomy) Endocrine/Metabolic History: Reports: Diabetes, Gestational, Obesity/BMI 30+ - Infectious Disease History Infectious Disease History: Reports: C-Difficile (03/27/2019) - Past Surgical History Neurological Surgical History: Reports: Lumbar Spine (laminectomy) Social & Family History - Family History Family Medical History: Noncontributory - Tobacco Use Smoking Status *Q: Former Smoker Years of Tobacco use: 9 Packs/Tins Daily: 0.5 Month/Year Tobacco Last Used: Quit 2001 - Caffeine Use Caffeine Use: Reports: Coffee - Alcohol Use Alcohol Use History: No - Recreational Drug Use Recreational Drug Use: No - Living Situation & Occupation Living situation: Reports: , with Spouse, with Family (3 kids) Occupation: Unemployed ED ROS GENERAL - Review of Systems Review Of Systems: Comprehensive ROS is negative, except as noted in HPI. ED EXAM, GI/ABD - Physical Exam Exam: See Below Exam Limited By: No Limitations General Appearance: Alert, WD/WN, No Apparent Distress Eyes: Bilateral: Normal Appearance, EOMI Ears: Normal External Exam, Hearing Grossly Normal Nose: Normal Inspection Throat/Mouth: Normal Inspection, Normal Lips, Normal Voice, No Airway Compromise Head: Atraumatic, Normocephalic Neck: Normal Inspection, Full Range of Motion Respiratory/Chest: No Respiratory Distress, Lungs Clear, Normal Breath Sounds, No Accessory Muscle Use Cardiovascular: Normal Peripheral Pulses, Regular Rate, Rhythm, No Edema, No Gallop, No JVD, No Murmur, No Rub GI/Abdominal Exam: Normal Bowel Sounds, Soft, No Organomegaly, No Distention, No Abnormal Bruit, No Mass, Tender (in the left lower quadrant only, which the patient states is chronic and not the same as the pain that brings her in. She is completely nontender to the left upper quadrant, indeed, she stated that palpation of the left upper quadrant made her feel better.) (Female) Exam: Deferred Rectal (Female) Exam: Deferred Back Exam: Normal Inspection, Full Range of Motion. No: CVA Tenderness (L), CVA Tenderness (R) Extremities: Normal Inspection, Normal Range of Motion, No Pedal Edema, Normal Capillary Refill Neurological: Alert, Oriented, Normal Cognition, No Motor/Sensory Deficits Psychiatric: Normal Affect Skin Exam: Warm, Dry, Intact, Normal Color, No Rash Course - Vital Signs Last Recorded V/S: Last Vital Signs Temp 36.8 C 11/03/19 21:53 Pulse 103 H 11/03/19 21:53 Resp 20 11/03/19 21:53 BP 128/83 11/03/19 21:53 Pulse Ox 97 11/03/19 21:53 - Orders/Labs/Meds Labs: Laboratory Tests 11/03/19 11/03/19 Range/Units 23:08 23:08 WBC 7.18 (3.98-10.04) K/mm3 RBC 5.16 (3.98-5.22) M/mm3 Hgb 14.3 (11.2-15.7) gm/dl Hct 44.4 (34.1-44.9) % MCV 86.0 (79.4-94.8) fl MCH 27.7 (25.6-32.2) pg MCHC 32.2 (32.2-35.5) g/dl RDW Std Deviation 41.8 (36.4-46.3) fL Plt Count 323 (182-369) K/mm3 MPV 9.3 L (9.4-12.3) fl Neutrophils % (Manual) 51 (40-60) % Band Neutrophils % 0 (0-10) % Lymphocytes % (Manual) 37 (20-40) % Atypical Lymphs % 0 % Monocytes % (Manual) 6 (2-10) % Eosinophils % (Manual) 5 (0.7-5.8) % Basophils % (Manual) 1 (0.1-1.2) Platelet Estimate Adequate RBC Morph Comment Normal Sodium 140 (136-145) mEq/L Potassium 3.6 (3.5-5.1) mEq/L Chloride 103 (98-107) mEq/L Carbon Dioxide 29 (21-32) mEq/L Anion Gap 11.6 (5-15) BUN 9 (7-18) mg/dL Creatinine 0.8 (0.55-1.02) mg/dL Est Cr Clr Drug Dosing 82.43 mL/min Estimated GFR (MDRD) > 60 (>60) mL/min BUN/Creatinine Ratio 11.3 L (14-18) Glucose 121 H (74-106) mg/dL Calcium 8.7 (8.5-10.1) mg/dL Total Bilirubin 0.2 (0.2-1.0) mg/dL AST 15 (15-37) U/L ALT 34 (14-59) U/L Alkaline Phosphatase 78 (46-116) U/L Total Protein 7.5 (6.4-8.2) g/dl Albumin 3.9 (3.4-5.0) g/dl Globulin 3.6 gm/dL Albumin/Globulin Ratio 1.1 (1-2) - Re-Assessments/Exams Free Text/Narrative Re-Assessment/Exam: 11/04/19 01:07 While the patient has left upper quadrant pain, she has no tenderness to the left upper quadrant, indeed, she says that her abdomen feels a little bit better when the left upper quadrant is palpated. She has some left lower quadrant pain, but she says that it chronic and entirely different than the pain that brings her to the ED. Additionally, her abdomen is soft and she has active bowel sounds. Both her CBC and CMP are unremarkable, with no suggestion of an infection. Paired with a negative CT scan of her abdomen and pelvis with oral and IV contrast when she had the same/similar symptoms on 03/27/2019, the likelihood of finding an abnormality on the CT scan today are exceedingly small , therefore, under these circumstances, I cannot justify recommending a CT scan of her abdomen and pelvis, as the risks of radiation outweigh the potential benefits. The patient is in agreement with my reasoning. She will be discharged home, then follow-up with Dr. Pastrana at her previously scheduled appointment on 11/14/19. Departure - Departure Time of Disposition: 01:09 Disposition: Home, Self-Care 01 Condition: Good Clinical Impression: Left upper quadrant abdominal pain of unknown etiology, Nausea, Diarrhea - Discharge Information *PRESCRIPTION DRUG MONITORING PROGRAM REVIEWED*: Not Applicable *COPY OF PRESCRIPTION DRUG MONITORING REPORT IN PATIENT ODILIA: Not Applicable Instructions: Diarrhea, Adult, Abdominal Pain, Adult, [id number], Nausea, Adult, [id number] Referrals: Tatiana Nair MD [Primary Care Provider] - Kike Pastrana MD [Ordering Only Provider] - Forms: ED Department Discharge Additional Instructions: You were seen in the emergency room for left upper abdominal pain for the past 2 days, made worse with eating, along with nausea and diarrhea tonight. Workup in the ER included a CBC and CMP, both of which were unremarkable. You do not have an elevated WBC count to suggest an infection. On examination, your abdomen was found to be soft, with active bowel sounds, and no tenderness to your upper left abdomen. Your two prior CT scans of your abdomen and pelvis, on 02/11/2016, and 03/27/2019, were reviewed. We noted that the CT scan from 03/27/2019, when you had very similar symptoms, found minimal diverticular disease, but no evidence of diverticulitis. Based on your current history, physical exam, and ER tests, a repeat CT scan of your abdomen and pelvis was bnot recommended, as the risk of radiation was felt to outweigh the potential benefit. We recommend that you follow-up with the Colorectal Surgeon Dr. Kike Pastrana at your previously scheduled appointment on 11/14/2019. If any other problems, please do not hesitate to return to the ER. Sepsis Event Note - Evaluation Sepsis Screening Result: No Definite Risk - Focused Exam Date Exam was Performed: 11/04/19 Time Exam was Performed: 19:04
== END 2019-11-04 01:21 | disposition home or self-care (01) ==
LOC: JD.ED 21:42
DX: R10.12 Left upper quadrant pain (principal); R11.0 Nausea; R19.7 Diarrhea, unspecified; E66.01 Morbid (severe) obesity due to excess calories; Z68.35 Body mass index [BMI] 35.0-35.9, adult; Z88.0 Allergy status to penicillin; Z87.891 Personal history of nicotine dependence
CPT/HCPCS: 36415; 80053; 85007; 85027; 99283; 99284

== ENCOUNTER 2022-02-23 15:16 | Emergency (ER) | payer BC, SELFPAY ==
[2022-02-23 15:33] VITALS: BP 154/98; PULSE 88
[2022-02-23] MEDS ORDERED: Ciprofloxacin 0.3% Ophth Soln 5 ML Bottle EYERT ONE (16:16)
[2022-02-23] MEDS ORDERED: Ketorolac 0.5% Ophth Soln 5 ML Bottle EYERT SCH (17:00)
== END 2022-02-23 16:45 | disposition home or self-care (01) ==
LOC: JD.ED 15:16
DX: S05.01XA Injury of conjunctiva and corneal abrasion without foreign body, right eye, initial encounter (principal); J45.909 Unspecified asthma, uncomplicated; E66.9 Obesity, unspecified; Z68.34 Body mass index [BMI] 34.0-34.9, adult; Z88.0 Allergy status to penicillin; X58.XXXA Exposure to other specified factors, initial encounter
CPT/HCPCS: 99283; A9270

== ENCOUNTER 2022-09-25 09:48 | Emergency (ER) | payer BC | END 2022-09-25 10:25 | disposition left against medical advice (07) | LOC: JD.ED 09:48 | DX: Z53.21 Procedure and treatment not carried out due to patient leaving prior to being seen by health care provider (principal) ==

== ENCOUNTER 2022-10-27 11:17 | Emergency (ER) | payer BC ==
[2022-10-27] MEDS ORDERED: Sodium Chloride 0.9% 10 ML Syringe FLUSH PRN (11:44)
[2022-10-27] MEDS ORDERED: Metoclopramide 10 MG/2 ML SDV IVPUSH ONE (11:45)
[2022-10-27] MEDS ORDERED: HYDROmorphone 1 MG/ML Syringe IVPUSH ONE (11:45)
[2022-10-27] MEDS ORDERED: methylPREDNISolone Sodium Succinate 125 MG/2 ML SDV IVPUSH ONE (11:45)
[2022-10-27] MEDS ORDERED: Ketorolac 30 MG/ML SDV IVPUSH SCH (12:00)
[2022-10-27 14:44] VITALS: BP 135/85; PULSE 87
== END 2022-10-27 14:00 | disposition home or self-care (01) ==
LOC: JD.ED 11:17
DX: S86.811A Strain of other muscle(s) and tendon(s) at lower leg level, right leg, initial encounter (principal); M54.41 Lumbago with sciatica, right side; M46.1 Sacroiliitis, not elsewhere classified; F32.A Depression, unspecified; Z88.0 Allergy status to penicillin; E66.9 Obesity, unspecified
CPT/HCPCS: 72170; 96374; 96375; 99283; J1170; J1885; J2765; J2930; J3490

== ENCOUNTER 2023-01-14 15:09 | Emergency (ER) | payer BC ==
[2023-01-14] MEDS ORDERED: Sodium Chloride 0.9% 10 ML Syringe FLUSH PRN (15:49)
[2023-01-14] MEDS ORDERED: HYDROmorphone 1 MG/ML Syringe IVPUSH ONE (15:53)
[2023-01-14] MEDS ORDERED: HYDROmorphone 1 MG/ML Syringe IM ONE (15:57)
[2023-01-14 17:31] VITALS: BP 124/89; PULSE 86
== END 2023-01-14 17:29 | disposition home or self-care (01) ==
LOC: JD.ED 15:09
DX: M54.41 Lumbago with sciatica, right side (principal); M54.6 Pain in thoracic spine; E66.9 Obesity, unspecified; Z68.41 Body mass index [BMI] 40.0-44.9, adult; Z88.0 Allergy status to penicillin
CPT/HCPCS: 36415; 72128; 80053; 81001; 85025; 96372; 99283; J1170

== ENCOUNTER 2023-09-25 10:50 | Emergency (ER) | payer BC, OTHER ==
[2023-09-25] MEDS ORDERED: Sodium Chloride 0.9% 10 ML Syringe FLUSH PRN (12:04)
[2023-09-25 12:21] LABS: BASOPHILS ABSOLUTE AUTO 0.1 K/mm3 (0.0-0.2); BASOPHILS PERCENT AUTO 0.8 % (0.0-1.0); EOSINOPHILS ABSOLUTE AUTO 0.2 K/mm3 (0.0-0.4); EOSINOPHILS PERCENT AUTO 2.9 % (0.0-6.0); HEMATOCRIT 36.9 % (37.0-47.0); HEMOGLOBIN 11.6 gm/dl (12.0-16.0); IMMATURE GRAN ABSOLUTE AUTO 0.05 K/mm3 (0.00-0.05); IMMATURE GRAN PERCENT AUTO 0.7 % (0.0-0.4); LYMPHOCYTES ABSOLUTE AUTO 1.7 K/mm3 (1.0-4.8); LYMPHOCYTES PERCENT AUTO 24.1 % (24.0-44.0); MEAN CORPUSCULAR HEMOGLOBIN 27.4 pg (28.0-32.0); MEAN CORPUSCULAR HGB CONC 31.4 g/dl (32.0-36.0); MEAN PLATELET VOLUME 8.5 fl (9.4-12.3); MONOCYTES ABSOLUTE AUTO 0.4 K/mm3 (0.0-0.8); MONOCYTES PERCENT AUTO 5.9 % (0.0-8.0); NEUTROPHILS ABSOLUTE AUTO 4.7 K/mm3 (1.8-7.7); NEUTROPHILS PERCENT AUTO 65.6 % (41.0-71.0); PLATELET COUNT,PLT 363 K/mm3 (150-400); RED BLOOD CELL COUNT 4.24 M/mm3 (4.10-5.30); WHITE BLOOD CELL COUNT,WBC 7.15 K/mm3 (3.9-11.3)
[2023-09-25 13:06] LABS: A/G RATIO 0.9 (1-2); ALBUMIN 3.5 g/dl (3.4-5.0); ANION GAP 14.8 (5-15); BILIRUBIN TOTAL 0.3 mg/dL (0.2-1.0); BUN/CREATININE RATIO 21.7 (14-18); CALCIUM 9.2 mg/dL (8.5-10.1); CREATININE 0.6 mg/dL (0.55-1.02); EST CRCL DRUG DOSING (CG) 109.68 mL/min; MAGNESIUM 1.8 mg/dL (1.8-2.4); POTASSIUM,K 3.8 mEq/L (3.5-5.1); PROTEIN TOTAL,TP 7.3 g/dl (6.4-8.2)
[2023-09-25] MEDS ORDERED: Promethazine 25 MG/ML SDV IM ONE (14:15)
[2023-09-25 15:02] VITALS: BP 140/83; PULSE 92
== END 2023-09-25 14:58 | disposition home or self-care (01) ==
LOC: JD.ED 10:50
DX: R42 Dizziness and giddiness (principal); T41.45XA Adverse effect of unspecified anesthetic, initial encounter; E78.00 Pure hypercholesterolemia, unspecified; J45.909 Unspecified asthma, uncomplicated; E66.9 Obesity, unspecified; Z79.899 Other long term (current) drug therapy; Z88.0 Allergy status to penicillin; Z68.33 Body mass index [BMI] 33.0-33.9, adult
CPT/HCPCS: 36415; 80053; 83735; 85025; 99283; 99284

== ENCOUNTER 2023-12-10 18:55 | Emergency (ER) | payer BC ==
[2023-12-10 19:55] LABS: BASOPHILS PERCENT AUTO 0.5 % (0.0-1.0); EOSINOPHILS ABSOLUTE AUTO 0.2 K/mm3 (0.0-0.4); EOSINOPHILS PERCENT AUTO 2.2 % (0.0-6.0); HEMATOCRIT 44.1 % (37.0-47.0); HEMOGLOBIN 14.2 gm/dl (12.0-16.0); IMMATURE GRAN ABSOLUTE AUTO 0.03 K/mm3 (0.00-0.05); IMMATURE GRAN PERCENT AUTO 0.4 % (0.0-0.4); LYMPHOCYTES ABSOLUTE AUTO 2.2 K/mm3 (1.0-4.8); MEAN CORPUSCULAR HEMOGLOBIN 27.7 pg (28.0-32.0); MEAN CORPUSCULAR HGB CONC 32.2 g/dl (32.0-36.0); MEAN PLATELET VOLUME 8.8 fl (9.4-12.3); MONOCYTES ABSOLUTE AUTO 0.5 K/mm3 (0.0-0.8); MONOCYTES PERCENT AUTO 6.4 % (0.0-8.0); NEUTROPHILS ABSOLUTE AUTO 4.8 K/mm3 (1.8-7.7); NEUTROPHILS PERCENT AUTO 62.5 % (41.0-71.0); PLATELET COUNT,PLT 300 K/mm3 (150-400); RED BLOOD CELL COUNT 5.13 M/mm3 (4.10-5.30); WHITE BLOOD CELL COUNT,WBC 7.69 K/mm3 (3.9-11.3)
[2023-12-10 20:12] LABS: INR 0.97; PROTHROMBIN TIME 10.4 SECONDS (9.7-12.0)
[2023-12-10 20:16] LABS: ALBUMIN 3.7 g/dl (3.4-5.0); ANION GAP 11.9 (5-15); BILIRUBIN TOTAL 0.2 mg/dL (0.2-1.0); CALCIUM 8.9 mg/dL (8.5-10.1); CREATININE 0.8 mg/dL (0.55-1.02); EST CRCL DRUG DOSING (CG) 82.26 mL/min; POTASSIUM,K 3.9 mEq/L (3.5-5.1); PROTEIN TOTAL,TP 7.5 g/dl (6.4-8.2)
[2023-12-10 20:27] LABS: APPEARANCE,URINE CLOUDY (Clear); BILIRUBIN,URINE 3+ (Negative); COLOR,URINE RED (Yellow); GLUCOSE,URINE NEGATIVE (Negative); KETONES,URINE 1+ (Negative); LEUKOCYTE ESTERASE,URINE 3+ (Negative); NITRITE,URINE POSITIVE (Negative); OCCULT BLOOD,URINE 3+ (Negative); PROTEIN,URINE 3+ (Negative)
[2023-12-10] MEDS: Ondansetron 4 MG/2 ML SDV IVPUSH ONE (20:37)
[2023-12-10] MEDS: Morphine 4 MG/ML Syringe IVPUSH ONE (20:37)
[2023-12-10 21:01] LABS: BACTERIA,URINE MODERATE /hpf (FEW); RBC,URINE TOO NUMEROUS TO CNT /hpf (0-5); SQUAMOUS EPITHELIAL CELLS,UR 0-5 /hpf (0-5)
[2023-12-10 21:02] LABS: MUCUS,URINE MODERATE /hpf (FEW)
[2023-12-10] MEDS: Sulfamethoxazole/Trimethoprim 800-160 MG Tab PO ONE (21:47)
[2023-12-10 22:33] VITALS: BP 118/85; PULSE 80
== END 2023-12-10 22:35 | disposition home or self-care (01) ==
LOC: JD.ED 18:55
DX: N93.8 Other specified abnormal uterine and vaginal bleeding (principal); N30.01 Acute cystitis with hematuria; R10.2 Pelvic and perineal pain; E66.9 Obesity, unspecified; E11.9 Type 2 diabetes mellitus without complications; J45.909 Unspecified asthma, uncomplicated; Z79.899 Other long term (current) drug therapy
CPT/HCPCS: 36415; 74176; 80053; 81001; 81025; 85025; 85379; 85610; 85730; 87086; 99284; A9270

== ENCOUNTER 2024-03-26 20:21 | Emergency (ER) | payer BC | END 2024-03-27 02:54 | disposition left against medical advice (07) | LOC: JD.ED 20:21 | DX: Z53.21 Procedure and treatment not carried out due to patient leaving prior to being seen by health care provider (principal) ==

== ENCOUNTER 2024-04-29 00:09 | Emergency (ER) | payer BC ==
[2024-04-29] MEDS: Iopamidol 612 MG/ML 100 ML Bottle IVPUSH ONE (01:40)
[2024-04-29 01:42] LABS: BASOPHILS PERCENT AUTO 1.4 % (0.0-1.0); EOSINOPHILS PERCENT AUTO 0.9 % (0.0-6.0); HEMATOCRIT 37.7 % (37.0-47.0); HEMOGLOBIN 12.5 gm/dl (12.0-16.0); IMMATURE GRAN ABSOLUTE AUTO 0.03 K/mm3 (0.00-0.05); IMMATURE GRAN PERCENT AUTO 1.4 % (0.0-0.4); LYMPHOCYTES ABSOLUTE AUTO 0.6 K/mm3 (1.0-4.8); LYMPHOCYTES PERCENT AUTO 28.4 % (24.0-44.0); MEAN CORPUSCULAR HEMOGLOBIN 30.5 pg (28.0-32.0); MEAN CORPUSCULAR HGB CONC 33.2 g/dl (32.0-36.0); MEAN PLATELET VOLUME 9.8 fl (9.4-12.3); MONOCYTES ABSOLUTE AUTO 0.4 K/mm3 (0.0-0.8); MONOCYTES PERCENT AUTO 15.8 % (0.0-8.0); NEUTROPHILS ABSOLUTE AUTO 1.2 K/mm3 (1.8-7.7); NEUTROPHILS PERCENT AUTO 52.1 % (41.0-71.0); PLATELET COUNT,PLT 156 K/mm3 (150-400)
[2024-04-29 02:04] LABS: WHITE BLOOD CELL COUNT,WBC 2.22 K/mm3 (3.9-11.3)
[2024-04-29] MEDS ORDERED: Hyoscyamine 0.125 MG Tab.SL SL ONE (02:20)
[2024-04-29 02:37] LABS: SLIDE REVIEW ABNORMAL SMEAR
[2024-04-29 02:39] LABS: A/G RATIO 1.2 (1-2); ALBUMIN 3.6 g/dl (3.4-5.0); ANION GAP 12.3 (5-15); BILIRUBIN TOTAL 0.3 mg/dL (0.2-1.0); BUN/CREATININE RATIO 11.3 (14-18); C-REACTIVE PROTEIN 1.53 mg/dL (<0.30); CALCIUM 9.3 mg/dL (8.5-10.1); CREATININE 0.8 mg/dL (0.55-1.02); EST CRCL DRUG DOSING (CG) 82.26 mL/min; POTASSIUM,K 3.3 mEq/L (3.5-5.1); PROTEIN TOTAL,TP 6.5 g/dl (6.4-8.2)
[2024-04-29 04:09] VITALS: BP 126/67; PULSE 100
== END 2024-04-29 02:45 | disposition home or self-care (01) ==
LOC: JD.ED 00:09
DX: R10.13 Epigastric pain (principal); D70.1 Agranulocytosis secondary to cancer chemotherapy; T45.1X5A Adverse effect of antineoplastic and immunosuppressive drugs, initial encounter; J45.909 Unspecified asthma, uncomplicated; E78.00 Pure hypercholesterolemia, unspecified; E66.9 Obesity, unspecified; Z88.2 Allergy status to sulfonamides; Z79.899 Other long term (current) drug therapy; Z68.33 Body mass index [BMI] 33.0-33.9, adult
CPT/HCPCS: 36415; 74177; 80053; 82977; 83690; 85025; 86140; 93005; 99285; Q9967; 93010; 99284